=== PATIENT | female | born 1975 | race Two or more races ===

== ENCOUNTER 2023-09-08 16:46 | Emergency (ER) | payer OTHER ==
[~2023-09-08] VITALS: Ht 157.5 cm; Wt 114.8 kg
[2023-09-08] MEDS ORDERED: SYNTHROID100 MCG PO (17:13)
[2023-09-08] MEDS ORDERED: GLUMETZA500 MG PO (17:13)
[2023-09-08] MEDS ORDERED: GABAPENTIN100 M2 PO (17:13)
[2023-09-08] MEDS ORDERED: AMLODIPINE BESYL5 MG PO (17:13)
[2023-09-08] MEDS ORDERED: CARVEDILOL12.5 M1 PO (17:13)
[2023-09-08] MEDS ORDERED: VITAMIN D31250 MCG PO (17:13)
[2023-09-08] MEDS ORDERED: ONDANSETRON HCL 2 MG/ML VIAL IV ONE (17:45)
[2023-09-08] MEDS ORDERED: PANTOPRAZOLE SODIUM 40 MG/VIAL VIAL IV PUSH ONE (17:45)
[2023-09-08] MEDS ORDERED: HYOSCYAMINE SULFATE 0.125 MG TAB.SUBL SL ONE (17:45)
[2023-09-08 18:10] LABS: HEMATOCRIT 41.7 % (36.0-45.00); HEMOGLOBIN 14.1 g/dL (12.0-15.00); MEAN CELL VOLUME 79.5 fL (80.00-100.00); MEAN CORPUSCULAR HEMOGLOBIN 26.9 pg (27.00-32.0); MEAN CORPUSCULAR HGB CONC 33.8 g/dl (32.0-36.0); PLATELET COUNT 374 K/uL (150-450); RED BLOOD COUNT 5.24 M/uL (4.00-6.00)
[2023-09-08 18:33] LABS: ALBUMIN 3.6 gm/dL (3.4-5.0); BILIRUBIN TOTAL 0.3 mg/dL (0.3-1.2); CALCIUM 9.6 mg/dL (8.5-10.1); CREATININE SERUM 0.53 mg/dL (0.55-1.02); GFR 123.12; GLOBULINA 4.1 G/DL (2.4-3.5); POTASSIUM 4.15 mEq/L (3.5-5.1); TOTAL PROTEIN 7.7 gm/dL (6.4-8.2)
== END 2023-09-09 00:01 | disposition home or self-care (01) ==
LOC: ER 16:47
PROVIDERS: General Practice
DX: T50.905A Adverse effect of unspecified drugs, medicaments and biological substances, initial encounter (principal); R10.32 Left lower quadrant pain; K57.30 Diverticulosis of large intestine without perforation or abscess without bleeding; Z88.0 Allergy status to penicillin; E11.9 Type 2 diabetes mellitus without complications; Z79.84 Long term (current) use of oral hypoglycemic drugs; I10 Essential (primary) hypertension